=== PATIENT | male | born 1960 | race Hispanic/Latino ===

== ENCOUNTER 2017-10-31 04:18 | Inpatient (IN) | payer OTHER ==
[~2017-10-31] VITALS: Ht 175.3 cm; Wt 103.7 kg
[~2017-10-31 04:18] MED LIST: AEC81 PO; LISI2.5T2 PO; NIAC-8 PO; PUMP160C PO; ROSU20TA PO
[2017-10-31] MEDS ORDERED: SODIUM CHLORIDE 0.9% 1000ML 1,000 ML IV ONE (04:51)
[2017-10-31] MEDS ORDERED: ONDANSETRON HCL MDV 20ML 2 MG/ML VIAL ONE (04:51)
[2017-10-31] MEDS ORDERED: PANTOPRAZOLE 40 MG/VIAL ONE (04:59)
[2017-10-31 05:12] LABS: BASOPHILS % (AUTO) 0.1 % (0.0-5.0); EOSINOPHILS % (AUTO) 0.3 % (0.0-8.0); HEMATOCRIT 41.4 % (42-54); LYMPHOCYTES % (AUTO) 7.4 % (21.0-51.0); MEAN CORPUSCULAR HEMOGLOBIN 23.8 pg (27.0-33.0); MEAN CORPUSCULAR HGB CONC 33.1 g/dL (32.0-36.0); MEAN CORPUSCULAR VOLUME 71.8 fL (79-99); MONOCYTES % (AUTO) 8.4 % (3.0-13.0); NEUTROPHILS % (AUTO) 83.8 % (40.0-77.0); PLATELET COUNT (AUTO) 253 K/uL (130-400); RED BLOOD CELL COUNT(AUTO) 5.77 MIL/uL (4.50-6.20); RED CELL DISTRIBUTION WIDTH 14.4 % (11.0-15.5); WHITE BLOOD COUNT (AUTO) 12.2 K/uL (4.8-10.8)
[2017-10-31 05:23] LABS: CREATININE 1.1 mg/dL (0.5-1.5); POTASSIUM 3.3 mmol/L (3.5-5.1)
[2017-10-31 05:27] LABS: ALBUMIN 3.9 g/dL (3.5-5.0); BILIRUBIN,TOTAL 0.6 mg/dL (0.2-1.0); TOTAL PROTEIN, SERUM 7.8 g/dL (6.0-8.3)
[2017-10-31] MEDS ORDERED: IOPAMIDOL-370 75 ML VIAL IV ONE (05:36)
[2017-10-31] MEDS ORDERED: MORPHINE SULFATE 4 MG/1ML SYG IV PRN (08:00)
[2017-10-31] MEDS ORDERED: ACETAMINOPHEN 325 MG TAB PO PRN ×2 (08:00)
[2017-10-31] MEDS ORDERED: NITROGLYCERIN 0.4 MG SL TAB SL PRN (08:00)
[2017-10-31] MEDS ORDERED: HYDRALAZINE HCL 20 MG/ML VIAL IV PRN ×2 (08:00→22:15)
[2017-10-31] MEDS ORDERED: ACETAMINOPHEN-CODEINE 300/30MG TAB PO PRN ×2 (08:00)
[2017-10-31] MEDS ORDERED: MORPHINE SULFATE 2 MG/ML 1ML SYG IV PRN (08:00)
[2017-10-31] MEDS ORDERED: MAG HYDROX/AL HYDROX/SIMETH ES 30 ML SUSP UDCUP PO PRN (08:00)
[2017-10-31] MEDS ORDERED: LACTULOSE 20 GM/30 ML UDCUP PO PRN (08:00)
[2017-10-31] MEDS ORDERED: ONDANSETRON HCL MDV 20ML 2 MG/ML VIAL IV PRN (08:00)
[2017-10-31] MEDS ORDERED: GUAIFENESIN-DM 200/20 MG 10 ML PO PRN (08:00)
[2017-10-31] MEDS ORDERED: ASPI-1197 PO (17:13)
[2017-10-31] MEDS ORDERED: TAMS0.4C32 PO (17:13)
[2017-10-31] MEDS ORDERED: SAW PALMETTO PO (17:13)
[2017-10-31] MEDS ORDERED: FINA5TAB41 PO (17:13)
[2017-10-31] MEDS ORDERED: METOPROLOL PO (17:13)
[2017-10-31] MEDS: SODIUM CHLORIDE 0.9% 1000ML 1,000 ML IV SCH ×2 (17:54→23:02)
[2017-10-31 20:45] VITALS: BP 162/71
[2017-10-31] MEDS: FAMOTIDINE/PF 20 MG/2 ML VIAL IV SCH (21:00)
[2017-10-31] MEDS: LEVOFLOXACIN 500 MG/D5W 100 ML 100 ML IV SCH (22:55)
[2017-11-01] VITALS (7 sets, daily range): BP systolic 134–160; BP diastolic 71–82
[2017-11-01] MEDS: METRONIDAZOLE 500MG/100ML BAG 100 ML IV SCH ×4 (00:17→23:22)
[2017-11-01] MEDS: SODIUM CHLORIDE 0.9% 1000ML 1,000 ML IV SCH ×3 (00:17→23:22)
[2017-11-01] MEDS: FAMOTIDINE/PF 20 MG/2 ML VIAL IV SCH ×2 (09:00→19:44)
[2017-11-01] MEDS ORDERED: LIDOCAINE HCL-MPF 1% 2ML VIAL IVP PRN (12:30)
[2017-11-01] MEDS ORDERED: POTASSIUM CHLORIDE 20MEQ/100ML 100 ML IV PRN (12:30)
[2017-11-01] MEDS ORDERED: POTASSIUM CHLORIDE 10% ELIXIR 20 MEQ/15 ML UDCUP PO PRN (12:30)
[2017-11-01] MEDS ORDERED: MAGNESIUM CITRATE 296 ML SOLUTION PO SCH (14:15)
[2017-11-01] MEDS: LEVOFLOXACIN 500 MG/D5W 100 ML 100 ML IV SCH (19:51)
[2017-11-02 04:00] VITALS: BP 129/78
[2017-11-02 05:40] LABS: HEMATOCRIT 34.3 % (42-54); MEAN CORPUSCULAR HEMOGLOBIN 24.4 pg (27.0-33.0); MEAN CORPUSCULAR VOLUME 71.7 fL (79-99); NUCLEATED RED BLOOD CELLS 0.1 % (0.0-0.19); PLATELET COUNT (AUTO) 208 K/uL (130-400); RED BLOOD CELL COUNT(AUTO) 4.78 MIL/uL (4.50-6.20); WHITE BLOOD COUNT (AUTO) 8.2 K/uL (4.8-10.8)
[2017-11-02 05:42] LABS: POTASSIUM 3.2 mmol/L (3.5-5.1)
[2017-11-02] MEDS: POTASSIUM CHLORIDE 20 MEQ ERTAB PO PRN ×3 (06:25→12:23)
[2017-11-02 07:52] VITALS: BP 130/76
[2017-11-02] MEDS: FAMOTIDINE/PF 20 MG/2 ML VIAL IV SCH (08:39)
[2017-11-02] MEDS: METRONIDAZOLE 500MG/100ML BAG 100 ML IV SCH (08:39)
[2017-11-02] MEDS: SODIUM CHLORIDE 0.9% 1000ML 1,000 ML IV SCH (09:54)
[2017-11-02 11:30] VITALS: BP 138/68
[2017-11-02 16:28] VITALS: BP 135/73
== END 2017-11-02 16:41 | disposition home or self-care (01) | DRG 247 ==
LOC: EDH 04:18 → EDHIP 07:54 → 4BH 20:45
PROVIDERS: ADMIT Internal Medicine; ATTEND Internal Medicine
PROC: 0DH673Z Insertion of Infusion Device into Stomach, Via Natural or Artificial Opening (ICD-10-PCS; principal; 2017-10-31)
DX: K56.609 Unspecified intestinal obstruction, unspecified as to partial versus complete obstruction (principal); D18.00 Hemangioma unspecified site; E78.5 Hyperlipidemia, unspecified; E87.6 Hypokalemia; I10 Essential (primary) hypertension; N40.0 Benign prostatic hyperplasia without lower urinary tract symptoms; K80.20 Calculus of gallbladder without cholecystitis without obstruction; Z82.49 Family history of ischemic heart disease and other diseases of the circulatory system; Z80.42 Family history of malignant neoplasm of prostate
CPT/HCPCS: 36415; 74021; 74177; 76705; 80048; 80053; 82550; 83690; 84484; 85025; 85027; 93005; C9113; J1956; J3490; J7030; Q9967

== ENCOUNTER → 2018-05-30 | Outpatient (CLI) | payer OTHER ==
[~2018-05-30] MED LIST changes: -AEC81 PO; +ASPI-1197 PO; +FINA5TAB41 PO; -LISI2.5T2 PO; +METOPROLOL PO; -NIAC-8 PO; -PUMP160C PO; +SAW PALMETTO PO; +TAMS0.4C32 PO
== END | disposition home or self-care (01) ==
LOC: LAB 15:50
PROVIDERS: ATTEND Internal Medicine Gastroenterology
DX: R93.2 Abnormal findings on diagnostic imaging of liver and biliary tract (principal)
CPT/HCPCS: 36415; 82565; 84520

== ENCOUNTER → 2018-06-07 | Outpatient (CLI) | payer OTHER ==
[~2018-06-07] MED LIST changes: +IOHEXOL 350 MG/ML 100ML INFUS..BTL IV ONE
== END | disposition home or self-care (01) ==
LOC: OIH 08:30
PROVIDERS: ATTEND Internal Medicine Gastroenterology
DX: D18.00 Hemangioma unspecified site (principal); N40.0 Benign prostatic hyperplasia without lower urinary tract symptoms; N28.1 Cyst of kidney, acquired
CPT/HCPCS: 74178; Q9967

== ENCOUNTER 2018-07-27 08:49 | Day surgery (SDC) | payer OTHER ==
[2018-07-25 16:40] LABS: BASOPHILS % (AUTO) 1.1 % (0.0-5.0); EOSINOPHILS % (AUTO) 3.2 % (0.0-8.0); HEMATOCRIT 44.1 % (42-54); LYMPHOCYTES % (AUTO) 19.8 % (21.0-51.0); MEAN CORPUSCULAR HGB CONC 32.4 g/dL (32.0-36.0); MEAN CORPUSCULAR VOLUME 77.3 fL (79-99); MONOCYTES % (AUTO) 7.2 % (3.0-13.0); NEUTROPHILS % (AUTO) 68.7 % (40.0-77.0); PLATELET COUNT (AUTO) 236 K/uL (130-400); RED BLOOD CELL COUNT(AUTO) 5.71 MIL/uL (4.50-6.20); RED CELL DISTRIBUTION WIDTH 14.4 % (11.0-15.5); WHITE BLOOD COUNT (AUTO) 11.2 K/uL (4.8-10.8)
[2018-07-25 16:50] VITALS: BP 143/78
[2018-07-27] VITALS (18 sets, daily range): BP systolic 116–134; BP diastolic 62–89
[~2018-07-27] VITALS: Ht 177.8 cm; Wt 105.9 kg
[~2018-07-27 08:49] MED LIST changes: -IOHEXOL 350 MG/ML 100ML INFUS..BTL IV ONE; +LEVOFLOXACIN 500 MG/D5W 100 ML 100 ML IV SCH
[2018-07-27] MEDS ORDERED: LACTATED RINGERS 1000ML 1,000 ML IV ONE (09:44)
[2018-07-27] MEDS ORDERED: GENTAMICIN 80 MG/NS 100 ML PB 100 ML IV ONE (09:44)
[2018-07-27] MEDS ORDERED: PROPOFOL 10 MG/ML 20ML VIAL IV ONE (11:09)
[2018-07-27] MEDS ORDERED: LIDOCAINE PF 2% 5ML ABBOJECT ONE (11:09)
[2018-07-27] MEDS ORDERED: FENTANYL CITRATE PF 50 MCG/1 ML 2ML VIAL ONE (11:10)
[2018-07-27] MEDS ORDERED: OPIUM/BELLADONNA ALKALOIDS 1 EACH SUPP.RECT RC ONE (12:47)
[2018-07-27] MEDS ORDERED: PHENAZOPYRIDINE HCL 200 MG TABLET ONE (13:56)
== END 2018-07-27 14:46 | disposition home or self-care (01) ==
LOC: DAH 08:49
PROVIDERS: ATTEND Urology
DX: N40.1 Benign prostatic hyperplasia with lower urinary tract symptoms (principal); N41.1 Chronic prostatitis; N13.8 Other obstructive and reflux uropathy; R39.14 Feeling of incomplete bladder emptying; I10 Essential (primary) hypertension; Z79.899 Other long term (current) drug therapy; Z88.8 Allergy status to other drugs, medicaments and biological substances; Z79.01 Long term (current) use of anticoagulants; Z87.891 Personal history of nicotine dependence; M19.90 Unspecified osteoarthritis, unspecified site
CPT/HCPCS: 36415; 52648; 85025; 88305; A4354; A4358; A4510; A4600; J1580; J1956; J2001; J2704; J3010; J7030; J7120

== ENCOUNTER 2021-07-26 12:29 | Day surgery (SDC) | payer BC ==
[2021-07-22 15:47] VITALS: BP 165/80
[2021-07-26] VITALS (16 sets, daily range): BP systolic 114–131; BP diastolic 60–69
[~2021-07-26] VITALS: Ht 175.3 cm; Wt 109.6 kg
[~2021-07-26 12:29] MED LIST changes: +AEC81 PO; +AMLO-257 PO; -ASPI-1197 PO; -FINA5TAB41 PO; +GENTAMICIN 80 MG/NS 100 ML PB 100 ML IV SCH; -LEVOFLOXACIN 500 MG/D5W 100 ML 100 ML IV SCH; -METOPROLOL PO; +MV-M1TAB20 PO; +MVIT PO; +OLME40TA18 PO; -ROSU20TA PO; +ROSU20TA23 PO; -SAW PALMETTO PO; -TAMS0.4C32 PO
[2021-07-26] MEDS ORDERED: LACTATED RINGERS 1000ML 1,000 ML IV ONE (12:57)
[2021-07-26] MEDS: LEVOFLOXACIN 500 MG/D5W 100 ML 100 ML IV SCH ×2 (13:00→15:25)
[2021-07-26] MEDS ORDERED: MIDAZOLAM HCL 1 MG/ML 2ML VIAL ONE (14:48)
[2021-07-26] MEDS ORDERED: FENTANYL CITRATE PF 50 MCG/1 ML 2ML VIAL ONE ×3 (14:48→17:26)
[2021-07-26] MEDS ORDERED: PROPOFOL 10 MG/ML 20ML VIAL IV ONE (14:48)
[2021-07-26] MEDS ORDERED: ROCURONIUM 10MG/1ML SYR 10 MG/ML ML ONE (15:15)
[2021-07-26] MEDS ORDERED: EPHEDRINE SULFATE 50 MG/ML AMPULE ONE (16:00)
[2021-07-26] MEDS ORDERED: OPIUM/BELLADONNA ALKALOIDS 1 EACH SUPP.RECT RC ONE (16:06)
[2021-07-26] MEDS ORDERED: ONDANSETRON 4MG INJ ONE (16:18)
[2021-07-26] MEDS ORDERED: MEPERIDINE-PF 25 MG/ML SYG ONE (17:16)
[2021-07-26] MEDS ORDERED: NEOSTIGMINE 5MG/5ML SYR IV ONE ×2 (17:20→17:25)
[2021-07-26] MEDS ORDERED: GLYCOPYRROLATE 1 MG/5 ML SYRINGE ONE (17:20)
[2021-07-26] MEDS ORDERED: PHENAZOPYRIDINE HCL 200 MG TABLET ONE (18:52)
== END 2021-07-26 19:30 | disposition home or self-care (01) ==
LOC: DAH 12:29
PROVIDERS: ATTEND Urology
DX: N40.1 Benign prostatic hyperplasia with lower urinary tract symptoms (principal); N21.0 Calculus in bladder; I10 Essential (primary) hypertension; E78.5 Hyperlipidemia, unspecified; Z79.899 Other long term (current) drug therapy; Z20.822 Contact with and (suspected) exposure to COVID-19
CPT/HCPCS: 36415; 52318; 52648; 82360; 87635; A4215; A4221; A4222; A4223; A4340; A4354; A4358; A4663; A5113; A6260; C9803; J1580; J1956; J2175; J2250; J2405; J2704; J2710 ×2; J3010 ×3; J3490 ×2; J7030; J7120 ×2